=== PATIENT | female | born 1980 | race Caucasian/White ===

== ENCOUNTER 2017-08-19 17:03 | Emergency (ER) | payer BC ==
[2017-08-19 17:57] VITALS: BP 106/71
--- NOTE | 2017-08-19 18:41 | UC ---
HPI Febrile Illness - HPI Summary HPI Summary: feeling unwell x 2 days with temp up to 101, myalgias, chest soreness with some cough, headache. Rapid flu negative. C0-workers with flu. 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 Hx Last Menstrual Period: 07/21/17 Onset/Duration: Started Days Ago - 2 Timing: Constant Initial Severity: Moderate Pain Intensity: 10 Pain Scale Used: 0-10 Numeric Aggravating Factors: Nothing Alleviating Factors: OTC Medicine Associated Signs and Symptoms: Fluid Intake - decreased, Headache, Myalgia - Allergy/Home Medications Allergies/Adverse Reactions: Allergies Allergy/AdvReac Type Severity Reaction Status Date / Time No Known Allergies Allergy Verified 08/19/17 17:57 PMH/Surg Hx/FS Hx/Imm Hx Previously Healthy: Yes - Surgical History Surgical History: Yes Surgery Procedure, Year, and Place: x 1. - Family History Known Family History: Positive: None - healthy family, denies any illnesses - Social History Occupation: Employed Full-time Lives: With Family Alcohol Use: Occasionally Substance Use Type: None Smoking Status (MU): Never Smoked Tobacco Review of Systems Constitutional: Fatigue Skin: Negative Eyes: Negative ENT: Sinus Congestion Respiratory: Shortness Of Breath, Cough Cardiovascular: Negative Gastrointestinal: Negative Genitourinary: Negative Motor: Weakness Neurovascular: Negative Musculoskeletal: Arthralgia Neurological: Negative Psychological: Negative Is Patient Immunocompromised?: No All Other Systems Reviewed And Are Negative: Yes Physical Exam Triage Information Reviewed: Yes Appearance: Ill-Appearing - looks unwell. Vital Signs: Initial Vital Signs Temp 99.5 F 08/19/17 17:54 Pulse 93 08/19/17 17:54 Resp 16 08/19/17 17:54 BP 106/71 08/19/17 17:54 Pulse Ox 100 08/19/17 17:54 Eyes: Positive: Conjunctiva Clear ENT: Positive: Pharyngeal erythema, TMs normal Neck: Positive: Supple, Nontender, No Lymphadenopathy Respiratory: Positive: Lungs clear, Normal breath sounds Cardiovascular: Positive: RRR, No Murmur Abdomen Description: Positive: Nontender, No Organomegaly Musculoskeletal: Positive: Strength Intact, ROM Intact Neurological: Positive: Alert, Muscle Tone Normal Psychological Exam: Normal Skin Exam: Normal Diagnostics - Laboratory Diagnostic Studies Completed/Ordered: rapid flu negative Course/Dx - Course Course Of Treatment: symptomatic treatment of flu like illness. No risk factors to indicate need for tamiflu - Febrile Illness Differential Diagnoses: Other: - flu, URI - Diagnoses Clinic Provider Diagnoses: flu like illness. Discharge - Discharge Plan Condition: Stable Disposition: HOME Patient Education Materials: Viral Syndrome (ED) Forms: *Work Release Referrals: Yaneth Welsh MD [Primary Care Provider] - Additional Instructions: Increase hydration, with intake of soup broth and juices to avoid dehydration. Use ibuprofen as needed for aches and pains. Off work today and tomorrow.
== END 2017-08-19 18:51 | disposition home or self-care (01) ==
LOC: UCCORT 17:03
DX: R50.9 Fever, unspecified (principal); M79.1 Myalgia; R07.9 Chest pain, unspecified; R05 Cough; R51 Headache
CPT/HCPCS: 87502; 99211; G0463

== ENCOUNTER 2018-12-27 11:34 | Emergency (ER) | payer BC ==
[2018-12-27 12:02] VITALS: BP 104/58
--- NOTE | 2018-12-27 12:06 | UC ---
Complaint Female HPI - HPI Summary HPI Summary: 38 y/o female presents to the urgent care c/o intermittent cramping pelvic pain after she eats for the past 3 weeks. Pt reports she experiences nausea after she eats too. However today pelvic pain is constant 8/10 w/o any radiation w/o any nausea. Pt has been taken OCP pill for the past year and has not had her period since then. Pt reports Hx of ovarian cysts which have been monitored by her [facility] [employer] w/ US and they were shrinking. Last US done was 6 months ago. She has a normal BM this morning and she ate breakfast this morning. She has not taken any medication to alleviate pain. Pt denies Hx of STD's vaginal discharge, N/V/D, fever, rash, SOB, chest pain, or abdominal pain. - History Of Current Complaint Chief Complaint: UCAbdominalPain Stated Complaint: STOMACH CRAMPING AFTER MEALS Time Seen by Provider: 12/27/18 12:05 Hx Obtained From: Patient Hx Last Menstrual Period: doesnt get with oral BCP ?: No Onset/Duration: Gradual Onset, Lasting Weeks - 3 weeks w/ cramping pelvic pain on and off after eating., Worse Since - today w/ constant cramping pelvic pain Timing: Constant, Lasting Days - 5 hrs Severity Initially: Mild Severity Currently: Moderate Pain Intensity: 8 Pain Scale Used: 0-10 Numeric Character: Cramping - pelvic pain today Aggravating Factor(s): Nothing Alleviating Factor(s): Nothing - Pt has not taken any medications to alleviate pain Associated Signs And Symptoms: Positive: Negative. Negative: Fever, Back Pain, Vaginal Bleeding/Discharge, Vaginal Discharge, Nausea, Vomiting(# Of Episodes =) , Genital Swelling, Genital Blisters Related Hx: Similar Episode/Dx as: - ovarian cysts - Risk Factors Ectopic Risk Factor: Negative Ovarian Torsion Risk Factor: Ovarian Cysts/Tumors - which have been f/u by her [employer] [employer] last US doen ws 6 months ago and they wer shrinking - Allergies/Home Medications Allergies/Adverse Reactions: Allergies Allergy/AdvReac Type Severity Reaction Status Date / Time No Known Allergies Allergy Verified 12/27/18 12:02 Home Medications: Home Medications Oral Bcp PO 12/27/18 [History] PMH/Surg Hx/FS Hx/Imm Hx Previously Healthy: Yes Other GI/ History: ovarian cysts - Surgical History Surgical History: Yes Surgery Procedure, Year, and Place: x 1. - Family History Known Family History: Positive: None - healthy family, denies any illnesses - Social History Alcohol Use: Occasionally Substance Use Type: None Smoking Status (MU): Never Smoked Tobacco Review of Systems All Other Systems Reviewed And Are Negative: Yes Constitutional: Positive: Negative Skin: Positive: Negative Eyes: Positive: Negative ENT: Positive: Negative Respiratory: Positive: Negative Cardiovascular: Positive: Negative Gastrointestinal: Positive: Negative Genitourinary: Positive: Other - pelvic pain. Negative: Dysuria, Hematuria, Frequency, Urgency, Vaginal/Penile Itching, Vaginal/Penile Discharge, Vaginal/ Penile Tenderness Motor: Positive: Negative Neurovascular: Positive: Negative Musculoskeletal: Positive: Negative Neurological: Positive: Negative Psychological: Positive: Negative Is Patient Immunocompromised?: No Physical Exam - Summary Physical Exam Summary: Vital signs: reviewed General: well developed, well nourished female sitting in the examining table w/o any acute distress. Head: Normocephalic, no lesions. Eyes: PERRLA, EOM's full, conjunctiva clear, fundi grossly normal. Ears: EAC's clear, TM's normal. Nose: Mucosa normal, no obstruction. Throat: Clear, no exudates, no lesions. Neck: Supple, no masses, no thyromegaly, no bruits. Chest: Lungs clear, no rales, no rhonchi, no wheezes. Heart: RR, no murmurs, no rubs, no gallops. Abdomen: Soft, no tenderness, no masses, BS normal. Pelvic: I was assisted by NUrse Zelda" External genitalia within normal limits. There is no lesions there is no masses noted. Speculum exam: The vaginal aviles are within normal limits w/cottage cheese vaginal discahrge and mild discrete blood for the os, possible her period. no lesions or rashes. The cervix is closed with no lesions or masses. There is no CMT's, and no adnexal masses. Rectal: No lesions, no hemorrhoids, Back: Normal curvature, no tenderness. Extremities: FROM, no deformities, no edema, no erythema. Neuro: Physiological, no localizing findings. Skin: Normal, no rashes, no lesions noted. Triage Information Reviewed: Yes Vital Signs: Initial Vital Signs Temp 98.5 F 12/27/18 11:55 Pulse 60 07/16/19 11:55 Resp 16 12/27/18 11:55 BP 104/58 12/27/18 11:55 Pulse Ox 100 12/27/18 11:55 Complaint Female Dx - Course Course Of Treatment: 38 y/o female presents to the urgent care c/o intermittent cramping pelvic pain after she eats for the past 3 weeks. Pt reports she experiences nausea after she eats too. However today pelvic pain is constant 8/10 w/o any radiation w/o any nausea. Pt has been taken OCP pill for the past year and has not had her period since then. Pt reports Hx of ovarian cysts which have been monitored by her [employer] w/ US and they were shrinking. Last US done was 6 months ago. She has a normal BM this morning and she ate breakfast this morning. She has not taken any medication to alleviate pain. Pt denies Hx of STD's vaginal discharge, N/V/D, fever, rash, SOB, chest pain, or abdominal pain. Hx obtained. Pt is hemodynamically stable, A&OX3, Vitals :WNL, UA: negtive, test: negative. I was assisted by nurse Zelda for Speculum exam: The vaginal aviles are within normal limits w/ cottage cheese vaginal discharge, no lesions or rashes. The cervix is closed with discrete blood, possibly her period, no masses. There is no CMT's, and no adnexal masses. Pt declined STD's screening screening. Pt w/Hx of ovarian cyst. Transvaginal US ordered to r/o ovarian torsion. Pt given Ibuprofen PO to alleviate pelvic pain by nurse. Pt tolerated well medicationa dn pain decrease. Since pt had to wait for UD, she decided to signed AMA and stated she was feeling better and pelvic pain has subsided. Pt educated on the importance to r/o ovarian cysts or other pelvic abnormality. Pt is also concerned of costs of US. Pt signed AMA. Pt strongly advised to go to the ER if pelvic pain returns and it is severe. Pt Rx Fluconazole PO as directed below. Pt givne referral w/ GI DR Watt for her nasua after eating and abdominal pain. Als advised to f/u w/ her [employer] [employer] [facility] for further management in her symptoms. Pt left clinic hemodynamically mag, A&OX# . - Differential Dx/Diagnosis Differential Diagnosis/HQI/PQRI: Cervicitis, Ovarian Cyst, Ovarian Torsion, Pelvic Inflammatory Disease, , Renal Colic, Sexually Transmitted Disease, Ureteral Stone, Urinary Tract Infection Provider Diagnosis: Pelvic pain Discharge - Sign-Out/Discharge Documenting (check all that apply): Patient Departure - D/C home All imaging exams completed and their final reports reviewed: No Studies - Discharge Plan Condition: Stable Disposition: AGAINST MEDICAL ADVICE Prescriptions: Fluconazole 150 MG TAB* [Diflucan 150 MG TAB*] 150 mg PO ONCE #1 tablet Patient Education Materials: Ovarian Cyst (ED) Referrals: Basim Watt MD [Medical Doctor] - 3 Days Yaneth Welsh MD [Primary Care Provider] - 1 Day Additional Instructions: I think you need a transvaginal US to r/o ovarina torsion since Hx of ovarian cyst. Since you declined if pelvic pain worsens I highly recommend you to go immediately to the ER for further evaluation and treatment on you rpelvic pain. The risks of not going can be ovarian torsion, , sepsis, etc. 2- Please take fluconazole PO as directed to alleviate possible Cadidiasis. 3- Please take Ibuprofen PO q6-8hrs prn after meals to alleviate pelvic pain. 4- Please f/u w/ GI DR Watt for further management in your nausea and abdominal pain after you eat. - Billing Disposition and Condition Condition: STABLE Disposition: Against Medical Advice
[2018-12-27] MEDS ORDERED: Ibuprofen TAB* 400 MG PO ONE (12:15)
[2018-12-27] MEDS ORDERED: Ibuprofen TAB* 400 MG ONE (12:24)
== END 2018-12-27 13:15 | disposition left against medical advice (07) ==
LOC: UCCORT 11:34
DX: R10.2 Pelvic and perineal pain (principal)
CPT/HCPCS: 81003; 84702; 99213; A9270-GY; G0463